=== PATIENT | male | born 1975 | race Hispanic/Latino ===

== ENCOUNTER → 2020-11-09 | Day surgery (SDC) | payer OTHER ==
[~2020-11-09] MED LIST: ALPHAGAN P15 ML; ANTACID650 MG; ASPIRIN81 MG PO; CALCITRIOL0.25 MCG PO; CARVEDILOL25 MG PO; DEXTROSE 5% 250ML 250 ML IV ONE; FENTANYL CITRATE/PF 100MCG/2 ML INJ ONE; HYDRALAZINE HC100 MG PO; ISOSORBIDE MONO30 MG PO; LEVEMIR FL100 UNIT/1 SC; LIDOCAINE HCL 2% LOCAL INJ 5 ML SDV VIAL INJ ONE; LIPITOR20 MG PO; MIDAZOLAM HCL 2 MG/2 ML VIAL ONE; NIFEDIPINE ER90 M1 PO; NOVOLOG100 UNIT/1 SC; PREDNISONE5 MG PO; PROPOFOL IV EMULSION 10 MG/ML 20 ML VIAL ONE; Z NIFEDIPINE; Z.0.CATAPRES0.1 MG; Z.0.FLOMAX0.4 MG; Z.0.LANTUS100 UNIT/1; Z.0.LASIX40 MG; Z.0.LISINOPRIL20 MG PO
[2020-11-09 09:33] VITALS: BP 133/69
== END | disposition home or self-care (01) ==
LOC: OR 06:52
PROVIDERS: ATTEND Internal Medicine Gastroenterology
DX: Z12.11 Encounter for screening for malignant neoplasm of colon (principal); K64.8 Other hemorrhoids; Z71.3 Dietary counseling and surveillance; E66.3 Overweight; I10 Essential (primary) hypertension; E11.9 Type 2 diabetes mellitus without complications; E78.5 Hyperlipidemia, unspecified; Z01.810 Encounter for preprocedural cardiovascular examination; Z01.812 Encounter for preprocedural laboratory examination; Z20.822 Contact with and (suspected) exposure to COVID-19; Z79.82 Long term (current) use of aspirin; Z79.4 Long term (current) use of insulin; Z68.26 Body mass index [BMI] 26.0-26.9, adult; Z94.0 Kidney transplant status
CPT/HCPCS: 36415; 45378; 82948; 93005; J2001; J2250; J2704; J3010; J7070; U0002

== ENCOUNTER 2021-02-05 17:10 | Inpatient (IN) | payer OTHER ==
[~2021-02-05] VITALS: Ht 180.3 cm; Wt 98.0 kg
[~2021-02-05 17:10] MED LIST changes: -DEXTROSE 5% 250ML 250 ML IV ONE; -FENTANYL CITRATE/PF 100MCG/2 ML INJ ONE; -LIDOCAINE HCL 2% LOCAL INJ 5 ML SDV VIAL INJ ONE; -MIDAZOLAM HCL 2 MG/2 ML VIAL ONE; -PROPOFOL IV EMULSION 10 MG/ML 20 ML VIAL ONE; -Z.0.CATAPRES0.1 MG; +Z.0.CATAPRES0.1 MG PO; -Z.0.FLOMAX0.4 MG; +Z.0.FLOMAX0.4 MG PO
[2021-02-05 18:00] LABS: BASOPHILS % 0.3 % (0.0-1.0); EOSINOPHILS % 0.2 % (0.0-6.0); LYMPHOCYTES # (AUTO) 0.9 (1.0-3.2); LYMPHOCYTES % 13.5 % (18.0-39.1); MEAN CORPUSCULAR HEMOGLOBIN 28.2 pg (28-32); MEAN CORPUSCULAR HGB CONC 30.6 g/dL (31-35); MEAN CORPUSCULAR VOLUME 92.1 fL (81-99); MONOCYTES # (AUTO) 0.8 (0.2-0.8); MONOCYTES % 12.5 % (4.4-11.3); NEUTROPHILS # (AUTO) 4.8 (2.1-6.9); NEUTROPHILS % 72.9 % (38.7-80.0); PLATELET COUNT 221 x10e3/uL (140-360); RED BLOOD COUNT 2.27 x10e6/uL (4.3-5.7); RED CELL DISTRIBUTION WIDTH 14.5 % (11.7-14.4)
[2021-02-05 18:02] LABS: HEMATOCRIT 20.9 % (38.2-49.6); HEMOGLOBIN 6.4 g/dL (14.0-18.0)
[2021-02-05 18:05] LABS: INR 1.18; PROTHROMBIN TIME 15.2 seconds (11.9-14.5)
[2021-02-05 18:06] LABS: PARTIAL THROMBOPLASTIN TIME 40.5 seconds (23.8-35.5)
[2021-02-05 18:17] LABS: ALBUMIN 2.4 g/dL (3.5-5.0); ALBUMIN/GLOBULIN RATIO 0.5 (0.8-2.0); ANION GAP 22.4 mmol/L (8-16); CREATININE, SERUM 7.75 mg/dL (0.72-1.25); POTASSIUM 4.4 mmol/L (3.5-5.1)
[2021-02-05 18:20] LABS: CALCIUM 6.9 mg/dL (8.4-10.2)
[2021-02-05 18:22] LABS: CREATINE KINASE MB 4.3 ng/mL (0-5.0)
[2021-02-05] MEDS ORDERED: SODIUM CHLORIDE 0.9% 250ML 250 ML IV ONE (18:45)
[2021-02-05] MEDS ORDERED: TACROLIMUS1 MG PO (20:42)
[2021-02-05] MEDS ORDERED: CLOPIDOGREL75 MG PO (20:42)
[2021-02-05] MEDS ORDERED: FUROSEMIDE40 MG PO (20:42)
[2021-02-05] MEDS ORDERED: TUMS ULTRA400 MG PO (20:42)
[2021-02-05] MEDS ORDERED: SODIUM CHLORIDE FLUSH 10 ML SYR INJ PRN (20:45)
[2021-02-05] MEDS ORDERED: SODIUM BICARBO650 MG PO (20:46)
[2021-02-05] MEDS: INSULIN REGULAR, HUMAN 100 UNIT/1 ML SQ SCH (21:00)
[2021-02-05] MEDS ORDERED: DEXTROSE 50% SYRINGE 50 ML IV PRN (21:00)
[2021-02-05] MEDS ORDERED: INSULIN REGULAR, HUMAN 100 UNIT/1 ML ONE (21:06)
[2021-02-05 23:45] VITALS: BP 89/64
[2021-02-06] VITALS (8 sets, daily range): BP systolic 89–114; BP diastolic 58–74
[2021-02-06] MEDS ORDERED: CALCITRIOL 0.25 MCG CAP PO SCH (04:45)
[2021-02-06 06:38] LABS: BASOPHILS % 0.1 % (0.0-1.0); EOSINOPHILS % 0.1 % (0.0-6.0); HEMATOCRIT 21.2 % (38.2-49.6); LYMPHOCYTES # (AUTO) 0.7 (1.0-3.2); MEAN CORPUSCULAR HEMOGLOBIN 28.3 pg (28-32); MEAN CORPUSCULAR HGB CONC 31.1 g/dL (31-35); MONOCYTES # (AUTO) 0.8 (0.2-0.8); MONOCYTES % 10.3 % (4.4-11.3); NEUTROPHILS # (AUTO) 6.3 (2.1-6.9); NEUTROPHILS % 79.9 % (38.7-80.0); PLATELET COUNT 232 x10e3/uL (140-360); RED BLOOD COUNT 2.33 x10e6/uL (4.3-5.7); RED CELL DISTRIBUTION WIDTH 14.4 % (11.7-14.4)
[2021-02-06 06:45] LABS: HEMOGLOBIN 6.6 g/dL (14.0-18.0)
[2021-02-06 07:23] LABS: ALBUMIN 2.4 g/dL (3.5-5.0); ALBUMIN/GLOBULIN RATIO 0.5 (0.8-2.0); CREATININE, SERUM 7.82 mg/dL (0.72-1.25)
[2021-02-06] MEDS: INSULIN REGULAR, HUMAN 100 UNIT/1 ML SQ SCH ×4 (07:30→20:48)
[2021-02-06 07:47] LABS: CREATINE KINASE MB 3.9 ng/mL (0-5.0)
[2021-02-06] MEDS: CALCIUM CARBONATE 500 MG CHEWABLE TABS PO SCH ×3 (08:52→16:31)
[2021-02-06] MEDS: TAMSULOSIN HCL 0.4 MG CAP PO SCH (08:53)
[2021-02-06] MEDS: CLOPIDOGREL BISULFATE 75 MG TAB PO SCH ×2 (08:54→09:00)
[2021-02-06] MEDS: PREDNISONE 5 MG TAB PO SCH (08:54)
[2021-02-06] MEDS ORDERED: CEFEPIME 1 GM in SODIUM CHLORIDE 0.9% 50ML 50 ML IV SCH (09:00)
[2021-02-06] MEDS ORDERED: CEFEPIME 1 GM in SODIUM CHLORIDE 0.9% 50ML 50 ML IV ONE (09:00)
[2021-02-06] MEDS ORDERED: SODIUM BICARBONATE 650 MG TAB PO SCH (09:00)
[2021-02-06] MEDS ORDERED: SODIUM CHLORIDE 0.9% 250ML 250 ML ONE ×3 (09:08→17:47)
[2021-02-06] MEDS ORDERED: SODIUM HYPOCHLORITE 0.25% 480 ML SOLN IR ONE (10:45)
[2021-02-06] MEDS ORDERED: Vancomycin IV 1 GM in SODIUM CHLORIDE 0.9% 250ML 250 ML IV ONE (11:00)
[2021-02-06 11:07] LABS: % IRON SATURATION 6 % (15-50); IRON 12 ug/dL (65-175); TOTAL IRON BINDING CAPACITY 195 ug/dL (261-478); TRANSFERRIN 139 mg/dL (174-364)
[2021-02-06] MEDS ORDERED: SODIUM CHLORIDE 0.9% 250ML 500 ML IV PRN (12:15)
[2021-02-06] MEDS ORDERED: ALBUMIN 25% 12.5GM 0.25 GM/ML BTL IV PRN (12:15)
[2021-02-06] MEDS ORDERED: MANNITOL 25% 12.5GM/50 ML VIAL IV PRN (12:15)
[2021-02-06] MEDS ORDERED: HEPARIN SOD (PORCINE) 1000 UNIT/ML SDV IV PRN (12:15)
[2021-02-06] MEDS ORDERED: SODIUM CHLORIDE 0.9% 1000ML 2,000 ML IV PRN (12:15)
[2021-02-06] MEDS ORDERED: LIDOCAINE HCL 1% LOCAL INJ 20 ML VIAL ONE (13:06)
[2021-02-06] MEDS: FLUCONAZOLE 100 MG TAB PO SCH (14:07)
[2021-02-06] MEDS: PIPERACILLIN/TAZOBACTAM 2.25 GM in SODIUM CHLORIDE 0.9% 50ML 50 ML IV SCH ×2 (14:07→16:31)
[2021-02-06] MEDS ORDERED: HEPARIN SOD (PORCINE) 1000 UNIT/ML SDV ONE (14:17)
[2021-02-06 14:38] LABS: CREATINE KINASE MB 3.7 ng/mL (0-5.0)
[2021-02-06] MEDS: TACROLIMUS 1 MG CAP PO SCH (16:31)
[2021-02-06] MEDS: SODIUM BICARBONATE 650 MG TAB PO SCH ×2 (16:31→21:06)
[2021-02-06] MEDS: ATORVASTATIN 40 MG TAB PO SCH (21:06)
[2021-02-07] VITALS (9 sets, daily range): BP systolic 115–153; BP diastolic 72–88
[2021-02-07] MEDS: PIPERACILLIN/TAZOBACTAM 2.25 GM in SODIUM CHLORIDE 0.9% 50ML 50 ML IV SCH ×4 (01:55→18:00)
[2021-02-07 04:51] LABS: BASOPHILS % 0.1 % (0.0-1.0); HEMATOCRIT 26.7 % (38.2-49.6); HEMOGLOBIN 8.7 g/dL (14.0-18.0); LYMPHOCYTES # (AUTO) 0.7 (1.0-3.2); LYMPHOCYTES % 7.7 % (18.0-39.1); MEAN CORPUSCULAR HGB CONC 32.6 g/dL (31-35); MEAN CORPUSCULAR VOLUME 85.9 fL (81-99); MONOCYTES # (AUTO) 0.7 (0.2-0.8); MONOCYTES % 7.5 % (4.4-11.3); NEUTROPHILS # (AUTO) 7.4 (2.1-6.9); NEUTROPHILS % 84.4 % (38.7-80.0); PLATELET COUNT 259 x10e3/uL (140-360); RED BLOOD COUNT 3.11 x10e6/uL (4.3-5.7); RED CELL DISTRIBUTION WIDTH 16.1 % (11.7-14.4)
[2021-02-07 05:16] LABS: ALBUMIN 2.3 g/dL (3.5-5.0); ALBUMIN/GLOBULIN RATIO 0.4 (0.8-2.0); ANION GAP 26.1 mmol/L (8-16); CALCIUM 7.2 mg/dL (8.4-10.2); CREATININE, SERUM 6.34 mg/dL (0.72-1.25); POTASSIUM 4.1 mmol/L (3.5-5.1)
[2021-02-07] MEDS: TACROLIMUS 1 MG CAP PO SCH ×2 (06:25→16:42)
[2021-02-07] MEDS: INSULIN REGULAR, HUMAN 100 UNIT/1 ML SQ SCH ×4 (07:29→22:00)
[2021-02-07] MEDS: CALCIUM CARBONATE 500 MG CHEWABLE TABS PO SCH ×3 (07:33→16:42)
[2021-02-07] MEDS: FLUCONAZOLE 100 MG TAB PO SCH (09:00)
[2021-02-07] MEDS: SODIUM BICARBONATE 650 MG TAB PO SCH ×3 (09:00→22:10)
[2021-02-07] MEDS ORDERED: CEFEPIME 0.5 GM in SODIUM CHLORIDE 0.9% 50ML 50 ML IV SCH (09:00)
[2021-02-07] MEDS: PREDNISONE 5 MG TAB PO SCH (09:00)
[2021-02-07] MEDS: CALCITRIOL 0.25 MCG CAP PO SCH (09:00)
[2021-02-07] MEDS: TAMSULOSIN HCL 0.4 MG CAP PO SCH (09:00)
[2021-02-07] MEDS: ATORVASTATIN 40 MG TAB PO SCH (22:10)
[2021-02-08] VITALS (7 sets, daily range): BP systolic 134–165; BP diastolic 86–94
[2021-02-08] MEDS: PIPERACILLIN/TAZOBACTAM 2.25 GM in SODIUM CHLORIDE 0.9% 50ML 50 ML IV SCH ×4 (00:06→17:55)
[2021-02-08 05:24] LABS: BASOPHILS % 0.3 % (0.0-1.0); EOSINOPHILS % 0.3 % (0.0-6.0); HEMATOCRIT 31.5 % (38.2-49.6); HEMOGLOBIN 10.2 g/dL (14.0-18.0); LYMPHOCYTES # (AUTO) 0.9 (1.0-3.2); LYMPHOCYTES % 11.6 % (18.0-39.1); MEAN CORPUSCULAR HEMOGLOBIN 28.1 pg (28-32); MEAN CORPUSCULAR HGB CONC 32.4 g/dL (31-35); MEAN CORPUSCULAR VOLUME 86.8 fL (81-99); MONOCYTES # (AUTO) 0.9 (0.2-0.8); MONOCYTES % 11.3 % (4.4-11.3); NEUTROPHILS # (AUTO) 5.9 (2.1-6.9); NEUTROPHILS % 75.9 % (38.7-80.0); PLATELET COUNT 308 x10e3/uL (140-360); RED BLOOD COUNT 3.63 x10e6/uL (4.3-5.7); RED CELL DISTRIBUTION WIDTH 15.9 % (11.7-14.4)
[2021-02-08] MEDS: TACROLIMUS 1 MG CAP PO SCH ×2 (05:33→16:53)
[2021-02-08 05:45] LABS: ALBUMIN 2.4 g/dL (3.5-5.0); ALBUMIN/GLOBULIN RATIO 0.4 (0.8-2.0); ANION GAP 20.4 mmol/L (8-16); CALCIUM 7.3 mg/dL (8.4-10.2); CREATININE, SERUM 4.64 mg/dL (0.72-1.25); POTASSIUM 3.4 mmol/L (3.5-5.1)
[2021-02-08] MEDS: INSULIN REGULAR, HUMAN 100 UNIT/1 ML SQ SCH ×4 (07:32→21:00)
[2021-02-08] MEDS: CALCIUM CARBONATE 500 MG CHEWABLE TABS PO SCH ×3 (07:57→16:53)
[2021-02-08] MEDS: FLUCONAZOLE 100 MG TAB PO SCH (08:54)
[2021-02-08] MEDS: TAMSULOSIN HCL 0.4 MG CAP PO SCH (08:54)
[2021-02-08] MEDS: PREDNISONE 5 MG TAB PO SCH (08:54)
[2021-02-08] MEDS: SODIUM BICARBONATE 650 MG TAB PO SCH ×3 (08:54→21:06)
[2021-02-08] MEDS: ATORVASTATIN 40 MG TAB PO SCH (21:06)
[2021-02-09] VITALS (26 sets, daily range): BP systolic 85–149; BP diastolic 27–97
[2021-02-09] MEDS: PIPERACILLIN/TAZOBACTAM 2.25 GM in SODIUM CHLORIDE 0.9% 50ML 50 ML IV SCH ×4 (01:28→20:55)
[2021-02-09 05:01] LABS: BASOPHILS % 0.4 % (0.0-1.0); EOSINOPHILS # (AUTO) 0.1 (0.0-0.4); EOSINOPHILS % 0.6 % (0.0-6.0); HEMATOCRIT 37.3 % (38.2-49.6); HEMOGLOBIN 11.8 g/dL (14.0-18.0); LYMPHOCYTES # (AUTO) 1.1 (1.0-3.2); LYMPHOCYTES % 13.2 % (18.0-39.1); MEAN CORPUSCULAR HEMOGLOBIN 27.8 pg (28-32); MEAN CORPUSCULAR HGB CONC 31.6 g/dL (31-35); MEAN CORPUSCULAR VOLUME 87.8 fL (81-99); MONOCYTES % 11.9 % (4.4-11.3); NEUTROPHILS # (AUTO) 6.1 (2.1-6.9); NEUTROPHILS % 73.4 % (38.7-80.0); PLATELET COUNT 345 x10e3/uL (140-360); RED BLOOD COUNT 4.25 x10e6/uL (4.3-5.7); RED CELL DISTRIBUTION WIDTH 15.9 % (11.7-14.4)
[2021-02-09 05:21] LABS: ALBUMIN 2.5 g/dL (3.5-5.0); ALBUMIN/GLOBULIN RATIO 0.4 (0.8-2.0); ANION GAP 21.3 mmol/L (8-16); CALCIUM 7.9 mg/dL (8.4-10.2); CREATININE, SERUM 4.35 mg/dL (0.72-1.25); POTASSIUM 4.3 mmol/L (3.5-5.1)
[2021-02-09] MEDS: TACROLIMUS 1 MG CAP PO SCH ×2 (05:32→17:40)
[2021-02-09] MEDS: INSULIN REGULAR, HUMAN 100 UNIT/1 ML SQ SCH ×4 (07:30→20:55)
[2021-02-09] MEDS: CALCIUM CARBONATE 500 MG CHEWABLE TABS PO SCH ×3 (08:00→17:00)
[2021-02-09] MEDS: SODIUM BICARBONATE 650 MG TAB PO SCH ×3 (08:41→20:55)
[2021-02-09] MEDS: TAMSULOSIN HCL 0.4 MG CAP PO SCH (08:41)
[2021-02-09] MEDS: CALCITRIOL 0.25 MCG CAP PO SCH (08:41)
[2021-02-09] MEDS: FLUCONAZOLE 100 MG TAB PO SCH (08:41)
[2021-02-09] MEDS: PREDNISONE 5 MG TAB PO SCH (08:41)
[2021-02-09] MEDS ORDERED: FENTANYL CITRATE/PF 100MCG/2 ML INJ ONE (09:07)
[2021-02-09] MEDS ORDERED: MIDAZOLAM HCL 2 MG/2 ML VIAL ONE (09:07)
[2021-02-09] MEDS ORDERED: LIDOCAINE HCL 2% LOCAL 20 ML VIAL ONE (09:07)
[2021-02-09] MEDS ORDERED: HEPARIN SOD/SOD CHLORIDE 2,000 ML ONE (09:08)
[2021-02-09] MEDS ORDERED: IOPAMIDOL 370 MG/ML 200 ML INFUS..BTL INJ ONE (09:08)
[2021-02-09] MEDS ORDERED: SODIUM CHLORIDE 0.9% 1000ML 1,000 ML ONE ×2 (09:08→10:02)
[2021-02-09] MEDS ORDERED: PHENYLEPHRINE HCL 1% 10 MG/ML VIAL ONE (10:06)
[2021-02-09] MEDS ORDERED: SODIUM CHLORIDE 0.9% 100 ML ONE (10:06)
[2021-02-09] MEDS ORDERED: CLOPIDOGREL BISULFATE 75 MG TAB ONE (10:48)
[2021-02-09] MEDS ORDERED: ASPIRIN 325 MG TAB ONE (10:48)
[2021-02-09] MEDS: ATORVASTATIN 40 MG TAB PO SCH (20:55)
[2021-02-10] VITALS (8 sets, daily range): BP systolic 120–165; BP diastolic 84–94
[2021-02-10] MEDS: PIPERACILLIN/TAZOBACTAM 2.25 GM in SODIUM CHLORIDE 0.9% 50ML 50 ML IV SCH ×2 (02:38→08:00)
[2021-02-10] MEDS: TACROLIMUS 1 MG CAP PO SCH ×2 (05:26→18:18)
[2021-02-10] MEDS: INSULIN REGULAR, HUMAN 100 UNIT/1 ML SQ SCH ×4 (07:30→21:00)
[2021-02-10] MEDS: CALCIUM CARBONATE 500 MG CHEWABLE TABS PO SCH ×3 (08:00→18:18)
[2021-02-10] MEDS: FLUCONAZOLE 100 MG TAB PO SCH (09:00)
[2021-02-10] MEDS: TAMSULOSIN HCL 0.4 MG CAP PO SCH (09:00)
[2021-02-10] MEDS: PREDNISONE 5 MG TAB PO SCH (09:00)
[2021-02-10] MEDS: SODIUM BICARBONATE 650 MG TAB PO SCH ×3 (09:00→21:12)
[2021-02-10] MEDS ORDERED: CLOPIDOGREL BISULFATE 75 MG TAB PO SCH (12:00)
[2021-02-10] MEDS: CLOPIDOGREL BISULFATE 75 MG TAB PO SCH (18:17)
[2021-02-10] MEDS: CEFTRIAXONE 2 GM in SODIUM CHLORIDE 0.9% 100 ML IV SCH (20:00)
[2021-02-10] MEDS: ATORVASTATIN 40 MG TAB PO SCH (21:12)
[2021-02-11] VITALS (7 sets, daily range): BP systolic 108–166; BP diastolic 82–97
[2021-02-11] MEDS: TACROLIMUS 1 MG CAP PO SCH ×2 (06:29→17:49)
[2021-02-11] MEDS: INSULIN REGULAR, HUMAN 100 UNIT/1 ML SQ SCH ×4 (07:30→21:28)
[2021-02-11] MEDS: CALCIUM CARBONATE 500 MG CHEWABLE TABS PO SCH ×3 (08:00→17:00)
[2021-02-11] MEDS: ASPIRIN 81 MG CHEW TAB PO SCH (09:00)
[2021-02-11] MEDS: SODIUM BICARBONATE 650 MG TAB PO SCH ×3 (09:00→21:28)
[2021-02-11] MEDS: FLUCONAZOLE 100 MG TAB PO SCH (09:00)
[2021-02-11] MEDS: CLOPIDOGREL BISULFATE 75 MG TAB PO SCH (09:00)
[2021-02-11] MEDS: PREDNISONE 5 MG TAB PO SCH (09:00)
[2021-02-11] MEDS ORDERED: CEFTRIAXONE 2 GM in SODIUM CHLORIDE 0.9% 100 ML IV SCH (09:00)
[2021-02-11] MEDS: TAMSULOSIN HCL 0.4 MG CAP PO SCH (09:00)
[2021-02-11] MEDS: ATORVASTATIN 40 MG TAB PO SCH (21:28)
[2021-02-11] MEDS: CEFTRIAXONE 2 GM in SODIUM CHLORIDE 0.9% 100 ML IV SCH (21:28)
[2021-02-12] VITALS (9 sets, daily range): BP systolic 123–168; BP diastolic 76–89
[2021-02-12 05:01] LABS: BASOPHILS % 0.3 % (0.0-1.0); EOSINOPHILS # (AUTO) 0.2 (0.0-0.4); EOSINOPHILS % 2.7 % (0.0-6.0); HEMATOCRIT 30.2 % (38.2-49.6); HEMOGLOBIN 9.6 g/dL (14.0-18.0); LYMPHOCYTES % 14.5 % (18.0-39.1); MEAN CORPUSCULAR HEMOGLOBIN 28.3 pg (28-32); MEAN CORPUSCULAR HGB CONC 31.8 g/dL (31-35); MEAN CORPUSCULAR VOLUME 89.1 fL (81-99); MONOCYTES # (AUTO) 0.9 (0.2-0.8); MONOCYTES % 12.7 % (4.4-11.3); NEUTROPHILS # (AUTO) 4.9 (2.1-6.9); NEUTROPHILS % 69.2 % (38.7-80.0); PLATELET COUNT 291 x10e3/uL (140-360); RED BLOOD COUNT 3.39 x10e6/uL (4.3-5.7); RED CELL DISTRIBUTION WIDTH 15.6 % (11.7-14.4)
[2021-02-12] MEDS: TACROLIMUS 1 MG CAP PO SCH ×2 (05:23→16:48)
[2021-02-12 05:29] LABS: ALBUMIN 2.4 g/dL (3.5-5.0); ALBUMIN/GLOBULIN RATIO 0.4 (0.8-2.0); ANION GAP 19.3 mmol/L (8-16); CREATININE, SERUM 5.92 mg/dL (0.72-1.25); POTASSIUM 3.3 mmol/L (3.5-5.1)
[2021-02-12] MEDS: INSULIN REGULAR, HUMAN 100 UNIT/1 ML SQ SCH ×4 (07:30→20:32)
[2021-02-12] MEDS: CALCIUM CARBONATE 500 MG CHEWABLE TABS PO SCH ×3 (08:00→16:48)
[2021-02-12] MEDS: SODIUM BICARBONATE 650 MG TAB PO SCH ×3 (08:08→20:21)
[2021-02-12] MEDS ORDERED: SODIUM CHLORIDE 0.9% 1000ML 1,000 ML ONE (12:08)
[2021-02-12] MEDS ORDERED: POTASSIUM CHLORIDE 20MEQ/100ML 100 ML IV ONE (12:15)
[2021-02-12] MEDS: SODIUM CHLORIDE 0.9% 1000ML 1,000 ML IV SCH (15:30)
[2021-02-12] MEDS ORDERED: MORPHINE SULFATE INJ 4 MG/ML INJ 1ML IV PRN (15:30)
[2021-02-12] MEDS ORDERED: ONDANSETRON HCL INJ 2MG/ML 2ML 2 MG/ML VIAL IV PRN (15:30)
[2021-02-12] MEDS ORDERED: HYDROCODONE/APAP 5MG-325MG TAB PO PRN (15:30)
[2021-02-12] MEDS: CLOPIDOGREL BISULFATE 75 MG TAB PO SCH (16:47)
[2021-02-12] MEDS: ASPIRIN 81 MG CHEW TAB PO SCH (16:47)
[2021-02-12] MEDS: FLUCONAZOLE 100 MG TAB PO SCH (16:47)
[2021-02-12] MEDS: TAMSULOSIN HCL 0.4 MG CAP PO SCH (16:47)
[2021-02-12] MEDS: CALCITRIOL 0.25 MCG CAP PO SCH (16:48)
[2021-02-12] MEDS: PREDNISONE 5 MG TAB PO SCH (16:48)
[2021-02-12] MEDS: CEFTRIAXONE 2 GM in SODIUM CHLORIDE 0.9% 100 ML IV SCH (20:21)
[2021-02-12] MEDS: ATORVASTATIN 40 MG TAB PO SCH (20:21)
[2021-02-13] VITALS (7 sets, daily range): BP systolic 149–177; BP diastolic 59–98
[2021-02-13] MEDS: SODIUM CHLORIDE 0.9% 1000ML 1,000 ML IV SCH ×3 (04:23→21:30)
[2021-02-13] MEDS: TACROLIMUS 1 MG CAP PO SCH ×3 (05:17→17:22)
[2021-02-13] MEDS: INSULIN REGULAR, HUMAN 100 UNIT/1 ML SQ SCH ×4 (07:30→20:50)
[2021-02-13] MEDS: SODIUM BICARBONATE 650 MG TAB PO SCH ×3 (07:47→20:48)
[2021-02-13] MEDS: CALCIUM CARBONATE 500 MG CHEWABLE TABS PO SCH ×3 (07:47→17:21)
[2021-02-13] MEDS: FLUCONAZOLE 100 MG TAB PO SCH (09:00)
[2021-02-13] MEDS ORDERED: LIDOCAINE HCL 1% LOCAL INJ 20 ML VIAL ONE (09:15)
[2021-02-13] MEDS ORDERED: SODIUM CHLORIDE 0.9% 250ML 250 ML ONE (09:15)
[2021-02-13] MEDS ORDERED: MIDAZOLAM HCL 2 MG/2 ML VIAL ONE (09:32)
[2021-02-13] MEDS ORDERED: HEPARIN SOD (PORCINE) 1000 UNIT/ML SDV ONE (09:33)
[2021-02-13] MEDS ORDERED: FENTANYL CITRATE/PF 100MCG/2 ML INJ ONE (09:33)
[2021-02-13] MEDS ORDERED: SODIUM CHLORIDE 0.9% 1000ML 2,000 ML ONE (09:58)
[2021-02-13] MEDS ORDERED: HEPARIN SOD (PORCINE) 1000 UNIT/ML SDV IV PRN (12:45)
[2021-02-13] MEDS: ASPIRIN 81 MG CHEW TAB PO SCH (15:12)
[2021-02-13] MEDS: TAMSULOSIN HCL 0.4 MG CAP PO SCH (15:13)
[2021-02-13] MEDS: CLOPIDOGREL BISULFATE 75 MG TAB PO SCH (15:13)
[2021-02-13] MEDS: CEFTRIAXONE 2 GM in SODIUM CHLORIDE 0.9% 100 ML IV SCH (20:47)
[2021-02-13] MEDS: ATORVASTATIN 40 MG TAB PO SCH (20:48)
[2021-02-13] MEDS ORDERED: LISINOPRIL 10 MG TAB PO SCH (21:00)
[2021-02-14 00:07] VITALS: BP 158/86
[2021-02-14 04:40] VITALS: BP 162/85
[2021-02-14] MEDS: SODIUM CHLORIDE 0.9% 1000ML 1,000 ML IV SCH ×2 (06:43→17:30)
[2021-02-14] MEDS: TACROLIMUS 1 MG CAP PO SCH ×2 (06:43→17:53)
[2021-02-14] MEDS: INSULIN REGULAR, HUMAN 100 UNIT/1 ML SQ SCH ×3 (07:30→16:30)
[2021-02-14] MEDS: CALCIUM CARBONATE 500 MG CHEWABLE TABS PO SCH ×3 (08:00→17:00)
[2021-02-14 08:56] VITALS: BP 168/84
[2021-02-14] MEDS: TAMSULOSIN HCL 0.4 MG CAP PO SCH (09:00)
[2021-02-14] MEDS: CALCITRIOL 0.25 MCG CAP PO SCH (09:00)
[2021-02-14] MEDS: CLOPIDOGREL BISULFATE 75 MG TAB PO SCH (09:00)
[2021-02-14] MEDS: SODIUM BICARBONATE 650 MG TAB PO SCH ×2 (09:00→15:00)
[2021-02-14] MEDS: ASPIRIN 81 MG CHEW TAB PO SCH (09:00)
[2021-02-14 09:41] VITALS: BP 168/84
[2021-02-14 12:54] VITALS: BP 127/83
[2021-02-14] MEDS ORDERED: ONDANSETRON HCL 4 MG ORAL DISINTEGRATING TAB PO PRN (14:30)
[2021-02-14] MEDS ORDERED: KEFLEX125 MG/5 M PO (15:57)
[2021-02-14 16:34] VITALS: BP 179/96
== END 2021-02-14 18:02 | disposition home or self-care (01) | DRG 239 ==
LOC: ER 17:49 → ERHOLD 20:42 → MED/SURG 02-06 00:09
PROVIDERS: ADMIT Internal Medicine; ATTEND Internal Medicine
PROC: 0JH63XZ Insertion of Tunneled Vascular Access Device into Chest Subcutaneous Tissue and Fascia, Percutaneous Approach (ICD-10-PCS; 2021-02-05)
PROC: 02HV33Z Insertion of Infusion Device into Superior Vena Cava, Percutaneous Approach (ICD-10-PCS; 2021-02-05)
PROC: 30243N1 Transfusion of Nonautologous Red Blood Cells into Central Vein, Percutaneous Approach (ICD-10-PCS; 2021-02-06)
PROC: 5A1D70Z Performance of Urinary Filtration, Intermittent, Less than 6 Hours Per Day (ICD-10-PCS; 2021-02-06)
PROC: 02HV33Z Insertion of Infusion Device into Superior Vena Cava, Percutaneous Approach (ICD-10-PCS; 2021-02-06)
PROC: 027034Z Dilation of Coronary Artery, One Artery with Drug-eluting Intraluminal Device, Percutaneous Approach (ICD-10-PCS; principal; 2021-02-11)
PROC: X2C0361 Extirpation of Matter from Coronary Artery, One Artery using Orbital Atherectomy Technology, Percutaneous Approach, New Technology Group 1 (ICD-10-PCS; 2021-02-11)
PROC: 4A023N7 Measurement of Cardiac Sampling and Pressure, Left Heart, Percutaneous Approach (ICD-10-PCS; 2021-02-11)
PROC: B2111ZZ Fluoroscopy of Multiple Coronary Arteries using Low Osmolar Contrast (ICD-10-PCS; 2021-02-11)
PROC: B2151ZZ Fluoroscopy of Left Heart using Low Osmolar Contrast (ICD-10-PCS; 2021-02-11)
PROC: 0Y6N0ZD Detachment at Left Foot, Partial 4th Ray, Open Approach (ICD-10-PCS; 2021-02-12)
DX: I21.4 Non-ST elevation (NSTEMI) myocardial infarction (principal); I50.31 Acute diastolic (congestive) heart failure; N18.6 End stage renal disease; I50.33 Acute on chronic diastolic (congestive) heart failure; Z94.0 Kidney transplant status; N17.9 Acute kidney failure, unspecified; I13.2 Hypertensive heart and chronic kidney disease with heart failure and with stage 5 chronic kidney disease, or end stage renal disease; M86.8X7 Other osteomyelitis, ankle and foot; E11.52 Type 2 diabetes mellitus with diabetic peripheral angiopathy with gangrene; I96 Gangrene, not elsewhere classified; L97.528 Non-pressure chronic ulcer of other part of left foot with other specified severity; E11.621 Type 2 diabetes mellitus with foot ulcer; Z20.822 Contact with and (suspected) exposure to COVID-19; E11.22 Type 2 diabetes mellitus with diabetic chronic kidney disease; D63.1 Anemia in chronic kidney disease; Z99.2 Dependence on renal dialysis; Z79.899 Other long term (current) drug therapy; E11.69 Type 2 diabetes mellitus with other specified complication; E11.65 Type 2 diabetes mellitus with hyperglycemia; B96.20 Unspecified Escherichia coli [E. coli] as the cause of diseases classified elsewhere; Z76.82 Awaiting organ transplant status; N40.0 Benign prostatic hyperplasia without lower urinary tract symptoms; E87.6 Hypokalemia
CPT/HCPCS: 36415; 36556; 36558; 51700; 71045; 74470; 76937; 77001; 80053; 82550; 82553; 82728; 82948; 83540; 83880; 84100; 84466; 84484; 85025; 85610; 85730; 86705; 86706; 86850; 86900; 86920; 87071; 87075; 87186; 87205; 87340; 88304; 88311; 90962; 92933; 93005; 93306; 93458; 96360; 99152; 99153; 99251; 99285; C1724; C1725; C1752; C1766; C1769; C1874; C1887; C1892; C1894; J0692; J0696; J1644; J1817; J2001; J2150; J2250; J2370; J2543; J3010; J3480; J7030; J7050; J7507; J7512; P9016; Q9967; U0002

== ENCOUNTER → 2021-11-27 | Day surgery (SDC) | payer OTHER ==
[2021-11-22 14:20] LABS: BASOPHILS % 0.4 % (0.0-1.0); EOSINOPHILS # (AUTO) 0.1 (0.0-0.4); EOSINOPHILS % 2.4 % (0.0-6.0); HEMATOCRIT 42.4 % (38.2-49.6); LYMPHOCYTES % 18.7 % (18.0-39.1); MEAN CORPUSCULAR HEMOGLOBIN 32.2 pg (28-32); MEAN CORPUSCULAR HGB CONC 30.7 g/dL (31-35); MONOCYTES # (AUTO) 0.5 (0.2-0.8); MONOCYTES % 9.8 % (4.4-11.3); NEUTROPHILS # (AUTO) 3.8 (2.1-6.9); NEUTROPHILS % 68.5 % (38.7-80.0); PLATELET COUNT 158 x10e3/uL (140-360); RED BLOOD COUNT 4.04 x10e6/uL (4.3-5.7); RED CELL DISTRIBUTION WIDTH 14.6 % (11.7-14.4)
[2021-11-22 14:47] LABS: ALBUMIN 3.2 g/dL (3.5-5.0); ALBUMIN/GLOBULIN RATIO 0.7 (0.8-2.0); ANION GAP 19.1 mmol/L (8-16); CHOL/HDL RATIO 2.6 (3.9-4.7); CREATININE, SERUM 7.05 mg/dL (0.72-1.25); POTASSIUM 5.1 mmol/L (3.5-5.1)
[2021-11-27] VITALS (11 sets, daily range): BP systolic 124–164; BP diastolic 75–88
[~2021-11-27] MED LIST changes: +CLOPIDOGREL75 MG PO; +FENTANYL CITRATE/PF 100MCG/2 ML INJ ONE; +FUROSEMIDE40 MG PO; +HEPARIN SOD/SOD CHLORIDE 2,000 ML ONE; +IOPAMIDOL 300MG/ML 100 ML INFUS..BTL IV ONE; +KEFLEX125 MG/5 M PO; +LIDOCAINE HCL 1% LOCAL INJ 20 ML VIAL ONE; +MIDAZOLAM HCL 2 MG/2 ML VIAL ONE; +NITROGLYCERIN/D5W 200 MCG/ML 250 ML ONE; +RENVELA0.8 GM PO; +SODIUM BICARBO650 MG PO; +SODIUM CHLORIDE 0.9% 1000ML 1,000 ML ONE; +TACROLIMUS1 MG PO; +TUMS ULTRA400 MG PO; +VERAPAMIL HCL 2.5 MG/ML 2 ML VIAL ONE; +[UNRECOGNIZED DRUG - OTHER] PO
== END | disposition home or self-care (01) ==
LOC: CATH LAB 10:28
PROVIDERS: ATTEND Internal Medicine
DX: I70.263 Atherosclerosis of native arteries of extremities with gangrene, bilateral legs (principal); I25.118 Atherosclerotic heart disease of native coronary artery with other forms of angina pectoris; E11.22 Type 2 diabetes mellitus with diabetic chronic kidney disease; I13.2 Hypertensive heart and chronic kidney disease with heart failure and with stage 5 chronic kidney disease, or end stage renal disease; I50.9 Heart failure, unspecified; N18.6 End stage renal disease; Z01.812 Encounter for preprocedural laboratory examination; Z20.822 Contact with and (suspected) exposure to COVID-19; Z99.2 Dependence on renal dialysis; Z79.82 Long term (current) use of aspirin; Z79.02 Long term (current) use of antithrombotics/antiplatelets; Z79.4 Long term (current) use of insulin; Z95.5 Presence of coronary angioplasty implant and graft; Z82.49 Family history of ischemic heart disease and other diseases of the circulatory system; Z83.3 Family history of diabetes mellitus; Z84.1 Family history of disorders of kidney and ureter
CPT/HCPCS: 36415; 37225; 37229; 75625; 76937; 80053; 80061; 85025; C1724; C1725; C1760; C1769 ×4; C1887 ×3; C1894; J2001; J2250; J3010; J7030; Q9967; U0002; 36247; 37224; 37228; 75716; 99152; 99153

== ENCOUNTER → 2021-12-11 | Outpatient (CLI) | payer OTHER ==
[~2021-12-11] MED LIST changes: -FENTANYL CITRATE/PF 100MCG/2 ML INJ ONE; -HEPARIN SOD/SOD CHLORIDE 2,000 ML ONE; -IOPAMIDOL 300MG/ML 100 ML INFUS..BTL IV ONE; -LIDOCAINE HCL 1% LOCAL INJ 20 ML VIAL ONE; -MIDAZOLAM HCL 2 MG/2 ML VIAL ONE; -NITROGLYCERIN/D5W 200 MCG/ML 250 ML ONE; -SODIUM CHLORIDE 0.9% 1000ML 1,000 ML ONE; -VERAPAMIL HCL 2.5 MG/ML 2 ML VIAL ONE
[2021-12-11 11:50] LABS: BASOPHILS % 0.7 % (0.0-1.0); EOSINOPHILS # (AUTO) 0.1 (0.0-0.4); EOSINOPHILS % 3.5 % (0.0-6.0); HEMATOCRIT 36.2 % (38.2-49.6); HEMOGLOBIN 11.5 g/dL (14.0-18.0); LYMPHOCYTES # (AUTO) 0.9 (1.0-3.2); LYMPHOCYTES % 32.5 % (18.0-39.1); MEAN CORPUSCULAR HGB CONC 31.8 g/dL (31-35); MEAN CORPUSCULAR VOLUME 100.8 fL (81-99); MONOCYTES # (AUTO) 0.4 (0.2-0.8); MONOCYTES % 12.1 % (4.4-11.3); NEUTROPHILS # (AUTO) 1.5 (2.1-6.9); NEUTROPHILS % 50.9 % (38.7-80.0); PLATELET COUNT 182 x10e3/uL (140-360); RED BLOOD COUNT 3.59 x10e6/uL (4.3-5.7)
[2021-12-11 12:09] LABS: ALBUMIN/GLOBULIN RATIO 0.6 (0.8-2.0); ANION GAP 17.7 mmol/L (8-16); CALCIUM 8.2 mg/dL (8.4-10.2); CREATININE, SERUM 6.2 mg/dL (0.72-1.25); POTASSIUM 4.7 mmol/L (3.5-5.1)
== END ==
LOC: WCC 08:03
PROVIDERS: ATTEND Podiatrist Foot & Ankle Surgery
DX: E11.621 Type 2 diabetes mellitus with foot ulcer (principal); E11.29 Type 2 diabetes mellitus with other diabetic kidney complication; L97.428 Non-pressure chronic ulcer of left heel and midfoot with other specified severity; I87.2 Venous insufficiency (chronic) (peripheral); L95.8 Other vasculitis limited to the skin; N18.6 End stage renal disease; I10 Essential (primary) hypertension
CPT/HCPCS: 36415; 80053; 83036; 84134; 85025; 85651; 86141

== ENCOUNTER → 2021-12-14 | Outpatient (CLI) | payer OTHER | LOC: WCC 09:04 | PROVIDERS: ATTEND Podiatrist Foot & Ankle Surgery | DX: E11.621 Type 2 diabetes mellitus with foot ulcer (principal); E11.622 Type 2 diabetes mellitus with other skin ulcer; E11.29 Type 2 diabetes mellitus with other diabetic kidney complication; L97.428 Non-pressure chronic ulcer of left heel and midfoot with other specified severity; I87.2 Venous insufficiency (chronic) (peripheral); L95.8 Other vasculitis limited to the skin; N18.6 End stage renal disease; I10 Essential (primary) hypertension ==

== ENCOUNTER → 2022-01-01 | Outpatient (CLI) | payer OTHER | LOC: WCC 16:03 | PROVIDERS: ATTEND Podiatrist Foot & Ankle Surgery | DX: E11.621 Type 2 diabetes mellitus with foot ulcer (principal); E11.622 Type 2 diabetes mellitus with other skin ulcer; E11.29 Type 2 diabetes mellitus with other diabetic kidney complication; L97.428 Non-pressure chronic ulcer of left heel and midfoot with other specified severity; I87.2 Venous insufficiency (chronic) (peripheral); L95.8 Other vasculitis limited to the skin; N18.6 End stage renal disease; I10 Essential (primary) hypertension ==

== ENCOUNTER → 2022-01-08 | Outpatient (CLI) | payer OTHER | LOC: WCC 15:00 | PROVIDERS: ATTEND Podiatrist Foot & Ankle Surgery | DX: E11.621 Type 2 diabetes mellitus with foot ulcer (principal); E11.29 Type 2 diabetes mellitus with other diabetic kidney complication; E11.622 Type 2 diabetes mellitus with other skin ulcer; L97.428 Non-pressure chronic ulcer of left heel and midfoot with other specified severity; I87.2 Venous insufficiency (chronic) (peripheral); L95.8 Other vasculitis limited to the skin; N18.6 End stage renal disease; I10 Essential (primary) hypertension ==

== ENCOUNTER → 2022-01-15 | Outpatient (CLI) | payer OTHER | LOC: WCC 11:27 | PROVIDERS: ATTEND Podiatrist Foot & Ankle Surgery | DX: E11.621 Type 2 diabetes mellitus with foot ulcer (principal); E11.29 Type 2 diabetes mellitus with other diabetic kidney complication; E11.622 Type 2 diabetes mellitus with other skin ulcer; L97.428 Non-pressure chronic ulcer of left heel and midfoot with other specified severity; I87.2 Venous insufficiency (chronic) (peripheral); L95.8 Other vasculitis limited to the skin; N18.6 End stage renal disease; I10 Essential (primary) hypertension ==

== ENCOUNTER → 2022-01-22 | Outpatient (CLI) | payer OTHER | LOC: WCC 11:19 | PROVIDERS: ATTEND Podiatrist Foot & Ankle Surgery | DX: E11.621 Type 2 diabetes mellitus with foot ulcer (principal); E11.29 Type 2 diabetes mellitus with other diabetic kidney complication; E11.622 Type 2 diabetes mellitus with other skin ulcer; L97.428 Non-pressure chronic ulcer of left heel and midfoot with other specified severity; I87.2 Venous insufficiency (chronic) (peripheral); L95.8 Other vasculitis limited to the skin; N18.6 End stage renal disease; I10 Essential (primary) hypertension ==

== ENCOUNTER → 2022-01-29 | Outpatient (CLI) | payer OTHER | LOC: WCC 15:48 | PROVIDERS: ATTEND Podiatrist Foot & Ankle Surgery | DX: E11.621 Type 2 diabetes mellitus with foot ulcer (principal); E11.622 Type 2 diabetes mellitus with other skin ulcer; E11.29 Type 2 diabetes mellitus with other diabetic kidney complication; L97.428 Non-pressure chronic ulcer of left heel and midfoot with other specified severity; I87.2 Venous insufficiency (chronic) (peripheral); L95.8 Other vasculitis limited to the skin; N18.6 End stage renal disease; I10 Essential (primary) hypertension ==

== ENCOUNTER → 2022-02-05 | Outpatient (CLI) | payer OTHER | LOC: WCC 08:40 | PROVIDERS: ATTEND Podiatrist Foot & Ankle Surgery | DX: E11.621 Type 2 diabetes mellitus with foot ulcer (principal); E11.29 Type 2 diabetes mellitus with other diabetic kidney complication; E11.622 Type 2 diabetes mellitus with other skin ulcer; L97.428 Non-pressure chronic ulcer of left heel and midfoot with other specified severity; I87.2 Venous insufficiency (chronic) (peripheral); L95.8 Other vasculitis limited to the skin; N18.6 End stage renal disease; I10 Essential (primary) hypertension ==

== ENCOUNTER → 2022-02-19 | Outpatient (CLI) | payer OTHER | LOC: WCC 09:07 | PROVIDERS: ATTEND Podiatrist Foot & Ankle Surgery | DX: E11.621 Type 2 diabetes mellitus with foot ulcer (principal); E11.29 Type 2 diabetes mellitus with other diabetic kidney complication; E11.622 Type 2 diabetes mellitus with other skin ulcer; L97.421 Non-pressure chronic ulcer of left heel and midfoot limited to breakdown of skin; L97.428 Non-pressure chronic ulcer of left heel and midfoot with other specified severity; I87.2 Venous insufficiency (chronic) (peripheral); L95.8 Other vasculitis limited to the skin; N18.6 End stage renal disease; I10 Essential (primary) hypertension | CPT/HCPCS: 87071; 87075; 87205 ==

== ENCOUNTER → 2022-02-26 | Outpatient (CLI) | payer OTHER | LOC: WCC 13:08 | PROVIDERS: ATTEND Podiatrist Foot & Ankle Surgery | DX: E11.621 Type 2 diabetes mellitus with foot ulcer (principal); E11.622 Type 2 diabetes mellitus with other skin ulcer; E11.29 Type 2 diabetes mellitus with other diabetic kidney complication; I87.2 Venous insufficiency (chronic) (peripheral); L95.8 Other vasculitis limited to the skin; L97.421 Non-pressure chronic ulcer of left heel and midfoot limited to breakdown of skin; N18.6 End stage renal disease; I10 Essential (primary) hypertension; B95.4 Other streptococcus as the cause of diseases classified elsewhere ==

== ENCOUNTER → 2022-03-19 | Outpatient (CLI) | payer OTHER | LOC: WCC 12:03 | PROVIDERS: ATTEND Podiatrist Foot & Ankle Surgery | DX: E11.621 Type 2 diabetes mellitus with foot ulcer (principal); E11.29 Type 2 diabetes mellitus with other diabetic kidney complication; E11.622 Type 2 diabetes mellitus with other skin ulcer; L97.421 Non-pressure chronic ulcer of left heel and midfoot limited to breakdown of skin; I87.2 Venous insufficiency (chronic) (peripheral); L95.8 Other vasculitis limited to the skin; N18.6 End stage renal disease; I10 Essential (primary) hypertension; B95.4 Other streptococcus as the cause of diseases classified elsewhere ==

== ENCOUNTER → 2022-03-26 | Outpatient (CLI) | payer OTHER ==
[2022-03-26 11:17] LABS: BASOPHILS % 0.5 % (0.0-1.0); EOSINOPHILS # (AUTO) 0.1 (0.0-0.4); EOSINOPHILS % 3.4 % (0.0-6.0); HEMATOCRIT 34.7 % (38.2-49.6); HEMOGLOBIN 10.9 g/dL (14.0-18.0); LYMPHOCYTES % 24.2 % (18.0-39.1); MEAN CORPUSCULAR HEMOGLOBIN 33.3 pg (28-32); MEAN CORPUSCULAR HGB CONC 31.4 g/dL (31-35); MEAN CORPUSCULAR VOLUME 106.1 fL (81-99); MONOCYTES # (AUTO) 0.6 (0.2-0.8); MONOCYTES % 14.4 % (4.4-11.3); NEUTROPHILS # (AUTO) 2.3 (2.1-6.9); NEUTROPHILS % 57.3 % (38.7-80.0); PLATELET COUNT 210 x10e3/uL (140-360); RED BLOOD COUNT 3.27 x10e6/uL (4.3-5.7); RED CELL DISTRIBUTION WIDTH 15.5 % (11.7-14.4)
[2022-03-26 11:45] LABS: ALBUMIN 3.4 g/dL (3.5-5.0); ALBUMIN/GLOBULIN RATIO 0.7 (0.8-2.0); ANION GAP 17.9 mmol/L (8-16); CALCIUM 8.9 mg/dL (8.4-10.2); CREATININE, SERUM 6.98 mg/dL (0.72-1.25); POTASSIUM 3.9 mmol/L (3.5-5.1)
== END ==
LOC: WCC 11:44
PROVIDERS: ATTEND Podiatrist Foot & Ankle Surgery
DX: E11.621 Type 2 diabetes mellitus with foot ulcer (principal); E11.622 Type 2 diabetes mellitus with other skin ulcer; E11.29 Type 2 diabetes mellitus with other diabetic kidney complication; S91.302A Unspecified open wound, left foot, initial encounter; I87.2 Venous insufficiency (chronic) (peripheral); L97.421 Non-pressure chronic ulcer of left heel and midfoot limited to breakdown of skin; L95.8 Other vasculitis limited to the skin; N18.6 End stage renal disease; I10 Essential (primary) hypertension
CPT/HCPCS: 36415; 80053; 83036; 84134; 84550; 85025; 85651; 86140; 87071; 87075; 87205

== ENCOUNTER → 2022-04-11 | Day surgery (SDC) | payer OTHER ==
[2022-04-10 12:15] LABS: EOSINOPHILS # (AUTO) 0.2 (0.0-0.4); EOSINOPHILS % 5.2 % (0.0-6.0); HEMATOCRIT 33.4 % (38.2-49.6); HEMOGLOBIN 10.5 g/dL (14.0-18.0); LYMPHOCYTES # (AUTO) 1.1 (1.0-3.2); MEAN CORPUSCULAR HEMOGLOBIN 33.8 pg (28-32); MEAN CORPUSCULAR HGB CONC 31.4 g/dL (31-35); MEAN CORPUSCULAR VOLUME 107.4 fL (81-99); MONOCYTES # (AUTO) 0.5 (0.2-0.8); MONOCYTES % 13.4 % (4.4-11.3); NEUTROPHILS % 52.1 % (38.7-80.0); PLATELET COUNT 200 x10e3/uL (140-360); RED BLOOD COUNT 3.11 x10e6/uL (4.3-5.7); RED CELL DISTRIBUTION WIDTH 15.6 % (11.7-14.4)
[2022-04-10 12:33] LABS: ALANINE AMINOTRANSFERASE 19 IU/L (0-55); ALBUMIN 3.1 g/dL (3.5-5.0); ALBUMIN/GLOBULIN RATIO 0.7 (0.8-2.0); ALKALINE PHOSPHATASE 94 IU/L (40-150); ANION GAP 20.2 mmol/L (8-16); BLOOD UREA NITROGEN 50 mg/dL (7-26); BUN/CREATININE RATIO 5 (6-25); CALCIUM 8.8 mg/dL (8.4-10.2); CARBON DIOXIDE 29 mmol/L (22-29); CHLORIDE 97 mmol/L (98-107); CREATININE, SERUM 9.12 mg/dL (0.72-1.25); GLUCOSE 155 mg/dL (74-118); POTASSIUM 4.2 mmol/L (3.5-5.1); SODIUM 142 mmol/L (136-145)
[~2022-04-11] VITALS: Ht 180.3 cm; Wt 96.2 kg
[2022-04-11] VITALS (11 sets, daily range): BP systolic 117–154; BP diastolic 72–79
[~2022-04-11] MED LIST changes: +FENTANYL CITRATE/PF 100MCG/2 ML INJ ONE; +HEPARIN SOD/SOD CHLORIDE 2,000 ML ONE; +IOPAMIDOL 300MG/ML 100 ML INFUS..BTL IV ONE; +LIDOCAINE 1% 10 ML MULTIDOSE VIAL IJ ONE; +MIDAZOLAM HCL 2 MG/2 ML VIAL ONE; +SODIUM CHLORIDE 0.9% 1000ML 1,000 ML ONE; +VERAPAMIL HCL 2.5 MG/ML 2 ML VIAL ONE
== END | disposition home or self-care (01) ==
LOC: CATH LAB 10:37
PROVIDERS: ATTEND Internal Medicine
DX: I70.263 Atherosclerosis of native arteries of extremities with gangrene, bilateral legs (principal); I25.10 Atherosclerotic heart disease of native coronary artery without angina pectoris; E11.22 Type 2 diabetes mellitus with diabetic chronic kidney disease; I13.2 Hypertensive heart and chronic kidney disease with heart failure and with stage 5 chronic kidney disease, or end stage renal disease; I50.9 Heart failure, unspecified; N18.6 End stage renal disease; Z01.812 Encounter for preprocedural laboratory examination; Z20.822 Contact with and (suspected) exposure to COVID-19; Z79.4 Long term (current) use of insulin; Z79.02 Long term (current) use of antithrombotics/antiplatelets; Z79.82 Long term (current) use of aspirin; Z79.899 Other long term (current) drug therapy; Z99.2 Dependence on renal dialysis; Z82.49 Family history of ischemic heart disease and other diseases of the circulatory system; Z84.1 Family history of disorders of kidney and ureter; Z83.3 Family history of diabetes mellitus
CPT/HCPCS: 0223U; 36415 ×2; 37225; 75625; 76937; 80053; 82948; 85025; C1724; C1769 ×2; C1887 ×4; J2250; J3010; J7030; Q9967; 36247; 37224; 75710; 99152; 99153

== ENCOUNTER → 2022-04-16 | Outpatient (CLI) | payer OTHER ==
[~2022-04-16] MED LIST changes: -FENTANYL CITRATE/PF 100MCG/2 ML INJ ONE; -HEPARIN SOD/SOD CHLORIDE 2,000 ML ONE; -IOPAMIDOL 300MG/ML 100 ML INFUS..BTL IV ONE; -LIDOCAINE 1% 10 ML MULTIDOSE VIAL IJ ONE; +LIDOCAINE VISC 2% SOLN 15 ML UDC ONE; -MIDAZOLAM HCL 2 MG/2 ML VIAL ONE; -SODIUM CHLORIDE 0.9% 1000ML 1,000 ML ONE; -VERAPAMIL HCL 2.5 MG/ML 2 ML VIAL ONE
== END ==
LOC: WCC 13:24
PROVIDERS: ATTEND Podiatrist Foot & Ankle Surgery
DX: E11.621 Type 2 diabetes mellitus with foot ulcer (principal); E11.29 Type 2 diabetes mellitus with other diabetic kidney complication; E11.622 Type 2 diabetes mellitus with other skin ulcer; L97.421 Non-pressure chronic ulcer of left heel and midfoot limited to breakdown of skin; I87.2 Venous insufficiency (chronic) (peripheral); L95.8 Other vasculitis limited to the skin; N18.6 End stage renal disease; I10 Essential (primary) hypertension

== ENCOUNTER → 2022-04-30 | Outpatient (CLI) | payer OTHER ==
[~2022-04-30] MED LIST changes: +BUPIVACAINE HCL 0.5% INJ 30 ML VIAL INJ ONE; +NEOSTIGMINE 1 MG/ML 10ML VIAL ONE
== END ==
LOC: WCC 08:28
PROVIDERS: ATTEND Podiatrist Foot & Ankle Surgery
DX: E11.621 Type 2 diabetes mellitus with foot ulcer (principal); E11.29 Type 2 diabetes mellitus with other diabetic kidney complication; E11.622 Type 2 diabetes mellitus with other skin ulcer; S91.301A Unspecified open wound, right foot, initial encounter; L97.521 Non-pressure chronic ulcer of other part of left foot limited to breakdown of skin; I87.2 Venous insufficiency (chronic) (peripheral); L95.8 Other vasculitis limited to the skin; N18.6 End stage renal disease; I10 Essential (primary) hypertension

== ENCOUNTER → 2022-05-07 | Day surgery (SDC) | payer OTHER ==
[~2022-05-07] MED LIST changes: -BUPIVACAINE HCL 0.5% INJ 30 ML VIAL INJ ONE; +DEXAMETHASONE SOD PHOS INJ 4 MG/ML SDV ONE; +EPHEDRINE SULFATE INJ 50 MG/ML VIAL ONE; +FENTANYL CITRATE/PF 100MCG/2 ML INJ ONE; +LIDOCAINE HCL 2% LOCAL INJ 5 ML SDV VIAL INJ ONE; -LIDOCAINE VISC 2% SOLN 15 ML UDC ONE; +MIDAZOLAM HCL 2 MG/2 ML VIAL ONE; -NEOSTIGMINE 1 MG/ML 10ML VIAL ONE; +ONDANSETRON HCL INJ 2MG/ML 2ML 2 MG/ML VIAL ONE; +POVIDONE IODINE 0.05% 0.05 % ML PO ONE; +PROPOFOL IV EMULSION 10 MG/ML 20 ML VIAL ONE; +SEVOFLURANE INHAL SOLN 250 ML PEN BTL ONE; +SODIUM CHLORIDE 0.9% 500ML 500 ML ONE
[2022-05-07 11:00] LABS: BASOPHILS % 0.8 % (0.0-1.0); EOSINOPHILS # (AUTO) 0.1 (0.0-0.4); EOSINOPHILS % 3.8 % (0.0-6.0); HEMATOCRIT 36.7 % (38.2-49.6); HEMOGLOBIN 11.3 g/dL (14.0-18.0); LYMPHOCYTES % 27.5 % (18.0-39.1); MEAN CORPUSCULAR HEMOGLOBIN 33.3 pg (28-32); MEAN CORPUSCULAR HGB CONC 30.8 g/dL (31-35); MEAN CORPUSCULAR VOLUME 108.3 fL (81-99); MONOCYTES # (AUTO) 0.5 (0.2-0.8); MONOCYTES % 13.5 % (4.4-11.3); NEUTROPHILS % 54.4 % (38.7-80.0); PLATELET COUNT 179 x10e3/uL (140-360); RED BLOOD COUNT 3.39 x10e6/uL (4.3-5.7); RED CELL DISTRIBUTION WIDTH 14.6 % (11.7-14.4)
[2022-05-07 11:24] LABS: INR 1.11; PARTIAL THROMBOPLASTIN TIME 33.6 seconds (23.8-35.5); PROTHROMBIN TIME 15.3 seconds (11.9-14.5)
[2022-05-07 11:30] LABS: ANION GAP 15.9 mmol/L (8-16); CALCIUM 8.8 mg/dL (8.4-10.2); CREATININE, SERUM 6.59 mg/dL (0.72-1.25); POTASSIUM 3.9 mmol/L (3.5-5.1)
[2022-05-07 15:40] VITALS: BP 139/80
== END | disposition home or self-care (01) ==
LOC: OR 10:22
PROVIDERS: ATTEND Podiatrist Foot & Ankle Surgery
DX: E11.42 Type 2 diabetes mellitus with diabetic polyneuropathy (principal); E11.621 Type 2 diabetes mellitus with foot ulcer; L97.522 Non-pressure chronic ulcer of other part of left foot with fat layer exposed; E11.51 Type 2 diabetes mellitus with diabetic peripheral angiopathy without gangrene; E11.22 Type 2 diabetes mellitus with diabetic chronic kidney disease; I12.0 Hypertensive chronic kidney disease with stage 5 chronic kidney disease or end stage renal disease; N18.6 End stage renal disease; I25.10 Atherosclerotic heart disease of native coronary artery without angina pectoris; E78.5 Hyperlipidemia, unspecified; Z01.810 Encounter for preprocedural cardiovascular examination; Z01.818 Encounter for other preprocedural examination; Z79.02 Long term (current) use of antithrombotics/antiplatelets; Z79.82 Long term (current) use of aspirin; Z79.4 Long term (current) use of insulin; Z79.899 Other long term (current) drug therapy
CPT/HCPCS: 14040; 28288; 36415; 71046; 76000; 80048; 82948; 85025; 85610; 85730; 87071; 87075; 87205; 88304; 88311; 93005; J0690; J1100; J2001; J2250; J2405; J2704; J3010; J7040

== ENCOUNTER → 2022-05-14 | Outpatient (CLI) | payer OTHER ==
[~2022-05-14] MED LIST changes: -DEXAMETHASONE SOD PHOS INJ 4 MG/ML SDV ONE; -EPHEDRINE SULFATE INJ 50 MG/ML VIAL ONE; -FENTANYL CITRATE/PF 100MCG/2 ML INJ ONE; -LIDOCAINE HCL 2% LOCAL INJ 5 ML SDV VIAL INJ ONE; -MIDAZOLAM HCL 2 MG/2 ML VIAL ONE; -ONDANSETRON HCL INJ 2MG/ML 2ML 2 MG/ML VIAL ONE; -POVIDONE IODINE 0.05% 0.05 % ML PO ONE; -PROPOFOL IV EMULSION 10 MG/ML 20 ML VIAL ONE; -SEVOFLURANE INHAL SOLN 250 ML PEN BTL ONE; -SODIUM CHLORIDE 0.9% 500ML 500 ML ONE
== END ==
LOC: WCC 11:39
PROVIDERS: ATTEND Podiatrist Foot & Ankle Surgery
DX: E11.622 Type 2 diabetes mellitus with other skin ulcer (principal); E11.29 Type 2 diabetes mellitus with other diabetic kidney complication; S91.302A Unspecified open wound, left foot, initial encounter; I87.2 Venous insufficiency (chronic) (peripheral); L95.8 Other vasculitis limited to the skin; N18.6 End stage renal disease; I10 Essential (primary) hypertension

== ENCOUNTER → 2022-05-17 | Outpatient (CLI) | payer OTHER | LOC: WCC 15:11 | PROVIDERS: ATTEND Podiatrist Foot & Ankle Surgery | DX: T86.821 Skin graft (allograft) (autograft) failure (principal); E11.29 Type 2 diabetes mellitus with other diabetic kidney complication; E11.622 Type 2 diabetes mellitus with other skin ulcer; S91.302A Unspecified open wound, left foot, initial encounter; I87.2 Venous insufficiency (chronic) (peripheral); L95.8 Other vasculitis limited to the skin; N18.6 End stage renal disease; I10 Essential (primary) hypertension | CPT/HCPCS: 87071; 87075; 87205 ==

== ENCOUNTER → 2022-05-20 | Outpatient (CLI) | payer OTHER | LOC: WCC 12:50 | PROVIDERS: ATTEND Podiatrist Foot & Ankle Surgery | DX: T86.821 Skin graft (allograft) (autograft) failure (principal); E11.622 Type 2 diabetes mellitus with other skin ulcer; E11.29 Type 2 diabetes mellitus with other diabetic kidney complication; S91.302A Unspecified open wound, left foot, initial encounter; I87.2 Venous insufficiency (chronic) (peripheral); L95.8 Other vasculitis limited to the skin; N18.6 End stage renal disease; I10 Essential (primary) hypertension ==

== ENCOUNTER → 2022-05-21 | Outpatient (CLI) | payer OTHER | LOC: WCC 10:23 | PROVIDERS: ATTEND Podiatrist Foot & Ankle Surgery | DX: T86.821 Skin graft (allograft) (autograft) failure (principal); E11.29 Type 2 diabetes mellitus with other diabetic kidney complication; E11.622 Type 2 diabetes mellitus with other skin ulcer; L95.8 Other vasculitis limited to the skin; I87.2 Venous insufficiency (chronic) (peripheral); N18.6 End stage renal disease; I10 Essential (primary) hypertension ==

== ENCOUNTER → 2022-05-22 | Outpatient (CLI) | payer OTHER | LOC: WCC 10:46 | PROVIDERS: ATTEND Podiatrist Foot & Ankle Surgery | DX: T86.821 Skin graft (allograft) (autograft) failure (principal); E11.622 Type 2 diabetes mellitus with other skin ulcer; E11.29 Type 2 diabetes mellitus with other diabetic kidney complication; I87.2 Venous insufficiency (chronic) (peripheral); L95.8 Other vasculitis limited to the skin; N18.6 End stage renal disease; I10 Essential (primary) hypertension ==

== ENCOUNTER → 2022-05-24 | Outpatient (CLI) | payer OTHER | LOC: WCC 09:22 | PROVIDERS: ATTEND Podiatrist Foot & Ankle Surgery | DX: T86.821 Skin graft (allograft) (autograft) failure (principal); E11.622 Type 2 diabetes mellitus with other skin ulcer; E11.29 Type 2 diabetes mellitus with other diabetic kidney complication; I87.2 Venous insufficiency (chronic) (peripheral); L95.8 Other vasculitis limited to the skin; N18.6 End stage renal disease; I10 Essential (primary) hypertension ==

== ENCOUNTER → 2022-05-28 | Outpatient (CLI) | payer OTHER | LOC: WCC 07:58 | PROVIDERS: ATTEND Podiatrist Foot & Ankle Surgery | DX: T86.821 Skin graft (allograft) (autograft) failure (principal); E11.29 Type 2 diabetes mellitus with other diabetic kidney complication; E11.622 Type 2 diabetes mellitus with other skin ulcer; I10 Essential (primary) hypertension; I87.2 Venous insufficiency (chronic) (peripheral); L95.8 Other vasculitis limited to the skin; N18.6 End stage renal disease ==

== ENCOUNTER → 2022-05-31 | Outpatient (CLI) | payer OTHER | LOC: WCC 11:41 | PROVIDERS: ATTEND Podiatrist Foot & Ankle Surgery | DX: T86.821 Skin graft (allograft) (autograft) failure (principal); E11.622 Type 2 diabetes mellitus with other skin ulcer; E11.29 Type 2 diabetes mellitus with other diabetic kidney complication; I87.2 Venous insufficiency (chronic) (peripheral); L95.8 Other vasculitis limited to the skin; N18.6 End stage renal disease; I10 Essential (primary) hypertension ==

== ENCOUNTER → 2022-06-04 | Outpatient (CLI) | payer OTHER | LOC: WCC 11:07 | PROVIDERS: ATTEND Podiatrist Foot & Ankle Surgery | DX: T86.821 Skin graft (allograft) (autograft) failure (principal); E11.29 Type 2 diabetes mellitus with other diabetic kidney complication; E11.622 Type 2 diabetes mellitus with other skin ulcer; I87.2 Venous insufficiency (chronic) (peripheral); L95.8 Other vasculitis limited to the skin; N18.6 End stage renal disease; I10 Essential (primary) hypertension ==

== ENCOUNTER → 2022-11-04 | Day surgery (SDC) | payer BC ==
[2022-10-31 08:40] LABS: BASOPHILS % 0.6 % (0.0-1.0); EOSINOPHILS # (AUTO) 0.1 (0.0-0.4); EOSINOPHILS % 2.2 % (0.0-6.0); HEMOGLOBIN 11.7 g/dL (14.0-18.0); LYMPHOCYTES % 19.9 % (18.0-39.1); MEAN CORPUSCULAR HEMOGLOBIN 32.9 pg (28-32); MEAN CORPUSCULAR HGB CONC 31.6 g/dL (31-35); MEAN CORPUSCULAR VOLUME 103.9 fL (81-99); MONOCYTES # (AUTO) 0.6 (0.2-0.8); MONOCYTES % 12.7 % (4.4-11.3); NEUTROPHILS # (AUTO) 3.2 (2.1-6.9); NEUTROPHILS % 64.4 % (38.7-80.0); PLATELET COUNT 161 x10e3/uL (140-360); RED BLOOD COUNT 3.56 x10e6/uL (4.3-5.7); RED CELL DISTRIBUTION WIDTH 13.7 % (11.7-14.4)
[2022-10-31 09:09] LABS: ALBUMIN 3.2 g/dL (3.5-5.0); ALBUMIN/GLOBULIN RATIO 0.7 (0.8-2.0); CALCIUM 9.6 mg/dL (8.4-10.2); CREATININE, SERUM 6.64 mg/dL (0.72-1.25)
[2022-10-31 09:33] LABS: CHOL/HDL RATIO 3.7 (3.9-4.7)
[2022-11-04] VITALS (15 sets, daily range): BP systolic 145–186; BP diastolic 65–92; PULSE 62–72; RESP 12–18; TEMP 97.7; O2SAT 100
[~2022-11-04] VITALS: Ht 180.3 cm; Wt 98.4 kg
[~2022-11-04] MED LIST changes: +FENTANYL CITRATE/PF 100MCG/2 ML INJ ONE; +HEPARIN SOD (PORCINE) 1000 UNIT/ML 30ML ONE; +HEPARIN SOD/SOD CHLORIDE 2,000 ML ONE; +IOPAMIDOL 370 MG/ML 100 ML INFUS..BTL INJ ONE; +LIDOCAINE HCL 2% LOCAL 20 ML VIAL ONE; +MIDAZOLAM HCL 2 MG/2 ML VIAL ONE; +NITROGLYCERIN/D5W 200 MCG/ML 250 ML ONE; +SODIUM CHLORIDE 0.9% 1000ML 1,000 ML ONE; +VERAPAMIL HCL 2.5 MG/ML 2 ML VIAL ONE
== END | disposition home or self-care (01) ==
LOC: CATH LAB 05:20
PROVIDERS: ATTEND Internal Medicine
DX: I25.118 Atherosclerotic heart disease of native coronary artery with other forms of angina pectoris (principal); R94.39 Abnormal result of other cardiovascular function study; E11.22 Type 2 diabetes mellitus with diabetic chronic kidney disease; I13.2 Hypertensive heart and chronic kidney disease with heart failure and with stage 5 chronic kidney disease, or end stage renal disease; N18.6 End stage renal disease; I50.9 Heart failure, unspecified; Z01.812 Encounter for preprocedural laboratory examination; Z79.4 Long term (current) use of insulin; Z79.02 Long term (current) use of antithrombotics/antiplatelets; Z79.82 Long term (current) use of aspirin; Z79.84 Long term (current) use of oral hypoglycemic drugs; Z99.2 Dependence on renal dialysis; Z68.30 Body mass index [BMI] 30.0-30.9, adult; Z82.49 Family history of ischemic heart disease and other diseases of the circulatory system; Z84.1 Family history of disorders of kidney and ureter; Z83.3 Family history of diabetes mellitus
CPT/HCPCS: 36415 ×2; 80053; 80061; 82948; 85025; 92928; 93458; C1725 ×2; C1753; C1766 ×2; C1769 ×2; C1874; C1887 ×2; J1644; J2001; J2250; J3010; J7030; Q9967